=== PATIENT | female | born 1950 | race Caucasian/White ===

== ENCOUNTER 2020-09-24 05:01 | Day surgery (SDC) | payer OTHER ==
[2020-09-23 07:45] VITALS: BMI 27.9
[2020-09-24 10:30] VITALS: TEMP 98
[2020-09-24 11:45] VITALS: BP 152/82; PULSE 83
== END 2020-09-24 12:00 | disposition home or self-care (01) ==
LOC: JASU-ENDO 05:01
PROVIDERS: ATTEND Internal Medicine Gastroenterology
PROC: 0DB78ZX Excision of Stomach, Pylorus, Via Natural or Artificial Opening Endoscopic, Diagnostic (ICD-10-PCS; 2020-09-24)
PROC: 0DB38ZX Excision of Lower Esophagus, Via Natural or Artificial Opening Endoscopic, Diagnostic (ICD-10-PCS; principal; 2020-09-24 10:15)
DX: K21.00 Gastro-esophageal reflux disease with esophagitis, without bleeding (principal); K29.50 Unspecified chronic gastritis without bleeding; B96.81 Helicobacter pylori [H. pylori] as the cause of diseases classified elsewhere; K31.89 Other diseases of stomach and duodenum
CPT/HCPCS: 88305-TC; 88342-TC

== ENCOUNTER 2020-11-05 04:38 | Day surgery (SDC) | payer OTHER ==
[2020-10-31 16:16] VITALS: BMI 27.9
[2020-11-05 11:37] VITALS: TEMP 97.5
[2020-11-05 12:56] VITALS: BP 134/76; PULSE 82
== END 2020-11-05 12:45 | disposition home or self-care (01) ==
LOC: JASU-ENDO 04:38
PROVIDERS: ATTEND Internal Medicine Gastroenterology
PROC: 0DBC8ZX Excision of Ileocecal Valve, Via Natural or Artificial Opening Endoscopic, Diagnostic (ICD-10-PCS; principal; 2020-11-05 11:00)
DX: Z12.11 Encounter for screening for malignant neoplasm of colon (principal); D12.0 Benign neoplasm of cecum; K57.30 Diverticulosis of large intestine without perforation or abscess without bleeding; I10 Essential (primary) hypertension; E11.9 Type 2 diabetes mellitus without complications; K21.9 Gastro-esophageal reflux disease without esophagitis; Z88.0 Allergy status to penicillin
CPT/HCPCS: 82962; 88305-TC